=== PATIENT | female | born 1955 | race Caucasian/White ===

== ENCOUNTER → 2017-04-19 | Day surgery (SDC) | payer OTHER ==
[~2017-04-19] MED LIST: DITROPAN5 MG PO; DULOXETINE HCL60 MG PO; IBUPROFEN PO; KLONOPIN1 MG PO; LEXAPRO PO; LORTAB 10/500 T1 TAB PO; MORPHINE SULFAT60 M1 PO; NORCO 10/325 TA1 TAB PO; PERCOCET10 PO; PRILOSEC OTC PO; PRILOSEC PO; PRILOSEC20 M1 PO; RANITIDINE HCL300 M1 PO; VIVELLE DOT TOP; VIVELLE-DO.0375 MG/2 TOP; VIVELLE-DOT1 EAC3 TOP
--- NOTE | ~2017-04-19 | OR ---
Unit #: [id number] #: [id number] Patient: GEETA CEDEÑO [id number] [address] [address] [id number] O MR#: [id number] NAME: GEETA CEDEÑO ROOM: Date of Procedure: 04/19/2017 Admission Date: 04/19/2017 Surgeon: Erasmo Delcid M.D. : 1955 Attending Physician: Erasmo Delcid M.D. Primary Care Physician: uMrray Holder M.D. OPERATIVE REPORT PREOPERATIVE DIAGNOSES Back pain, radiculopathy, lumbar disk herniation. POSTOPERATIVE DIAGNOSES Back pain, radiculopathy, lumbar disk herniation. PROCEDURE PERFORMED Lumbar epidural steroid injection with intravenous sedation and fluoroscopic guidance for needle localization. INDICATIONS FOR PROCEDURE The patient is a 62-year-old female with return of back greater than bilateral lower extremity pains due to known lumbar disk disease, which is nonsurgical. She is failed to settle with conservative treatment alone. She treated with p.r.n. epidural steroid injections. Last lumbar injection was done about 4 months ago. She did very well for about 3 months of greater than 60% settling. At that time, cervical injection was done that still has remained settled. Based on history, pathology, symptomatology, and treatment options, we are going to proceed with a repeat injection today. DESCRIPTION OF PROCEDURE The patient was placed in a seated position. Standard monitors were applied. 2 mg of Versed were given for sedation and anxiolysis, which were adequate. Vital signs remained stable. Sterile prep and drape then of the lumbar area was performed. The skin then at the L5 level was localized with 1% lidocaine. An 18-gauge [employer] needle was then advanced via loss of resistance technique and fluoroscopic guidance in toward the epidural space. After confirming proper positioning with fluoroscopy and radiographic contrast, 80 mg of Depo-Medrol and 4 mL of 0.125% bupivacaine were deposited. The patient tolerated the procedure otherwise well and was discharged to recovery room in stable condition. Dictated by... Mando Romero/remedios TD: 04/19/2017 23:44 JOB #: [id number] Unit #: [id number] #: [id number] Patient: GALAGEETA OPERATIVE REPORT Page 1 of 1 X Erasmo Delcid MD X PROCEDURE OPERATIVE NOTE
== END | disposition home or self-care (01) ==
LOC: CCSC 08:47
DX: M51.16 Intervertebral disc disorders with radiculopathy, lumbar region (principal); K21.9 Gastro-esophageal reflux disease without esophagitis
CPT/HCPCS: J1040; J2250

== ENCOUNTER → 2017-07-14 | Day surgery (SDC) | payer OTHER ==
--- NOTE | ~2017-07-14 | OR ---
Unit #: [id number] #: [id number] Patient: GEETA CEDEÑO [id number] [address] [address] [id number] O MR#: [id number] NAME: GEETA CEDEÑO ROOM: Date of Procedure: 07/14/2017 Admission Date: 07/14/2017 Surgeon: Erasmo Delcid M.D. : 1955 Attending Physician: Erasmo Delcid M.D. Referring Physician: Erasmo Delcid M.D. Primary Care Physician: Murray Holder M.D. OPERATIVE REPORT PREOPERATIVE DIAGNOSES 1. Back pain. 2. Radiculopathy. 3. Degenerative lumbar disk disease. SECONDARY DIAGNOSES 1. Neck pain. 2. Cervical radiculopathy. 3. Degenerative cervical disk disease. POSTOPERATIVE DIAGNOSES 1. Neck pain. 2. Cervical radiculopathy. 3. Degenerative cervical disk disease. PROCEDURES PERFORMED 1. Lumbar epidural steroid injection with intravenous sedation with fluoroscopic guidance for needle localization. 2. Cervical epidural steroid injection with fluoroscopic guidance for needle localization. INDICATIONS FOR PROCEDURE The patient is a 62-year-old female with previously mentioned diagnosis. She has nonsurgical pathology of the cervical and lumbar spine. She has been to rehabilitation and appears to be compliant with home exercise program. She is treated medically with moderate improvement. There are components of her pain, that did not settle well with medications and not improved with time, but settled very well with the use of p.r.n. epidural steroid injections. Based on history, pathology, symptomatology, and response to treatment, plan is to repeat a cervical and lumbar epidural steroid injection today and these will be repeated in the distant future on an as needed basis or frequently as needed. DESCRIPTION OF PROCEDURE The patient was placed in a seated position. Standard monitors were applied. A 2 mg of Versed were given for sedation and anxiolysis, which were adequate. Vital signs remained stable. Sterile prep and drape then of the lumbar area was performed. The skin then at the L5-S1 level was localized with 1% lidocaine. An 18-gauge [employer] needle was then advanced via loss of resistance technique and fluoroscopic guidance in toward the epidural space. The patient did not complain of any pain or paresthesia during needle advancement. After confirming proper positioning with Unit #: [id number] #: [id number] Patient: GEETA CEDEÑO fluoroscopy and radiographic contrast, 80 mg of Depo-Medrol and 4 mL of 0.125% bupivacaine were deposited. The patient tolerated the procedure otherwise well. Cervical epidural steroid injection with fluoroscopic guidance; a separate kit was used to sterilely prep and drape the patient's cervical spine. The skin then at the C5-C6 level was localized with 1% lidocaine. An 18-gauge [employer] needle was then advanced via hanging drop technique and fluoroscopic guidance in toward the epidural space. The patient did not complain of pain or paresthesia during needle advancement. After confirming proper positioning with fluoroscopy and radiographic contrast, 80 mg of Depo-Medrol and 2 mL of 0.25% bupivacaine were deposited. The patient tolerated the procedure otherwise well and was discharged to the recovery room in stable condition. Dictated by... Mando Romero/remedios TD: 07/15/2017 06:35 JOB #: [id number] CC: [facility] OPERATIVE REPORT Page 1 of 1 X Erasmo Delcid MD X PROCEDURE OPERATIVE NOTE
== END | disposition home or self-care (01) ==
LOC: CCSC 09:18
DX: M50.10 Cervical disc disorder with radiculopathy, unspecified cervical region (principal); M51.16 Intervertebral disc disorders with radiculopathy, lumbar region; K21.9 Gastro-esophageal reflux disease without esophagitis; F32.9 Major depressive disorder, single episode, unspecified; F41.9 Anxiety disorder, unspecified; Z88.8 Allergy status to other drugs, medicaments and biological substances; Z79.899 Other long term (current) drug therapy
CPT/HCPCS: J1040; J2250